=== PATIENT | male | born 1990 | race Caucasian/White ===

== ENCOUNTER 2019-07-22 11:33 | Emergency (ER) | payer OTHER ==
[~2019-07-22] VITALS: Ht 187 cm; Wt 120.0 kg
[~2019-07-22 11:33] MED LIST: NAPR-243 PO; SULF1TAB38 PO
[2019-07-22] MEDS ORDERED: oxyCODONE/APAP 5/325MG (PERCOCET 5) TABLET PO ONE (11:45)
--- NOTE | 2019-07-22 11:47 | ED Upper Extremity ---
General Chief Complaint: Upper Extremity Stated Complaint: FALL - R SHOULDER PAIN Source: patient Exam Limitations: no limitations History of Present Illness Date Seen by Provider: Jul 22, 2019 Time Seen by Provider: 11:46 Initial Comments To ER with reports of a fall and subsequent right shoulder pain that occurred earlier this morning. Onset: just prior to arrival Severity: moderate Pain/Injury Location: right shoulder Method of Injury: direct blow, fell Allergies and Home Medications Allergies Coded Allergies: acetaminophen (Verified Allergy, Severe, HIVES, 03/26/13) hydrocodone bit (Verified Allergy, Severe, HIVES, 03/26/13) Home Medications Tramadol HCl 50 Mg Tablet, 50 MG PO Q6H PRN for PAIN-MODERATE Prescribed by: FIDEL ALEMAN on 07/22/19 1229 Patient Home Medication List Home Medication List Reviewed: Yes Review of Systems Constitutional: see HPI EENTM: see HPI Respiratory: no symptoms reported Cardiovascular: no symptoms reported Genitourinary: no symptoms reported Musculoskeletal: see HPI Skin: no symptoms reported Psychiatric/Neurological: No Symptoms Reported Past Nkagjve-Znsrtf-Qocusv Hx Patient Social History Alcohol Use: Occasionally Uses Recreational Drug Use: Yes (pot) Smoking Status: Current Everyday Smoker Type Used: Cigarettes Recent Foreign Travel: No Contact w/Someone Who Travel: No Recent Hopitalizations: No Immunizations Up To Date Tetanus Booster (TDap): Less than 5yrs Seasonal Allergies Seasonal Allergies: No Past Medical History Surgeries: No Respiratory: No Cardiac: No Neurological: No Sexually Transmitted Disease: No HIV/AIDS: No Genitourinary: No Gastrointestinal: No Musculoskeletal: No Endocrine: No HEENT: No Cancer: No Psychosocial: No Integumentary: No Blood Disorders: No Adverse Reaction/Blood Tranf: No Physical Exam Vital Signs Vital Signs - First Documented 07/22/19 11:40 Temp 35.9 Pulse 100 Resp 18 B/P (MAP) 120/76 (91) Pulse Ox 95 Capillary Refill : Height, Weight, BMI Height: '" Weight: lbs. oz. kg; BMI Method:Stated General Appearance: WD/WN, no apparent distress HEENT: PERRL/EOMI, normal ENT inspection Neck: non-tender, full range of motion Respiratory: no respiratory distress, no accessory muscle use Shoulder: normal inspection, limited ROM, pain Elbow/Forearm: normal inspection, non-tender Wrist: Yes normal inspection, Yes non-tender Hand: normal inspection, non-tender Neurologic/Tendon: normal sensation, normal motor functions Neurologic/Psychiatric: alert, normal mood/affect, oriented x 3 Skin: normal color, warm/dry Progress/Results/Core Measures Results/Orders My Orders Orders - FIDEL ALEMAN APRN Shoulder, Right, 3 Views (07/22/19 11:44) Chest 1 View, Ap/Pa Only (07/22/19 11:44) Oxycodone/Apap 5/325mg Tablet (Percocet (07/22/19 11:45) Tramadol Tablet (Ultram Tablet) (07/22/19 12:00) Tramadol Tablet (Ultram Tablet) (07/22/19 11:58) Medications Given in ED Current Medications Medications Dose Ordered Sig/Rosanna Route Start Time Stop Time Status Last Admin Dose Admin Tramadol HCl 50 mg ONCE ONCE PO 07/22/19 12:00 07/22/19 12:01 DC 07/22/19 12:00 50 MG Vital Signs/I&O 07/22/19 11:40 Temp 35.9 Pulse 100 Resp 18 B/P (MAP) 120/76 (91) Pulse Ox 95 Diagnostic Imaging Diagonstic Imaging: Xray Comments NAME: KEYONNA TORRES [facility] REC#: [id number] PT STATUS: REG ER : 1990 PHYSICIAN: FIDEL ALEMAN APRN ADMIT DATE: 07/22/19/ER Signed Date of Exam:07/22/19 SHOULDER, RIGHT, 3 VIEWS CLINICAL HISTORY: Fall. Right collarbone injury. COMPARISON: None TECHNIQUE: 4 views of the right shoulder. FINDINGS: There is no acute fracture of the right shoulder. There is separation of the right acromioclavicular joint with approximately 7 mm of superior displacement of the lateral right clavicle from the acromion. No joint effusion is seen in the right shoulder. The surrounding soft tissues are unremarkable. IMPRESSION: 1. Right-sided type V acromioclavicular joint injury. No acute fracture. Recommend orthopedic consultation. Dictated by: Dictated on workstation # [id number] Dict: 07/22/19 1214 Trans: 07/22/19 1219 [facility] [id number] Interpreted by: AARON ANDERSON DO Electronically signed by: AARON ANDERSON DO 07/22/19 1219 Departure Communication (Admissions) Spoke with Dr. Hernandez from orthopedics, feels this is a type II or 3 before meals separation. The patient has no paresthesias in the arm no numbness no tingling and has a strong radial pulse and brisk capillary refill. I'll place him in a splint and have him follow-up with Dr. Hernandez. Impression Primary Impression: right acromioclavicular joint separation Disposition: HOME, SELF-CARE Condition: Stable Departure-Patient Inst. Decision time for Depature: 12:10 Referrals: ENZO ESCALERA BRIAN J MD NO,LOCAL PHYSICIAN (PCP) Primary Care Physician SRINIVASAN HILL MD,JESUS LUNSFORD,CHAYA WOMACK,CARI Curran MD Patient Instructions: Shoulder Pain (DC), Shoulder Add. Discharge Instructions: 1. Return to ER for any concerns 2. Follow-up with an orthopedist of your choosing, a list of local orthopedic surgeons has been listed for you. Call Wednesday to make an appointment to be seen for further evaluation. Wear a sling at all times except when showering in the meantime. No use of the right arm. Pain medication as directed. Scripts Tramadol HCl (Ultram) 50 Mg Tablet 50 MG PO Q6H PRN for PAIN-MODERATE, #20 TAB Prov: FIDEL ALEMAN APRN 07/22/19 FIDEL ALEMAN APRN Jul 22, 2019 11:47
--- NOTE | 2019-07-22 12:15 | Diagnostic Imaging Report ---
Patient History: Fall. Pain in the right collarbone.. Technique: Single frontal view of the chest Comparison: None FINDINGS: The lung volumes are normal. No focal consolidation is seen. No large pleural effusion or pneumothorax is seen. The cardiomediastinal silhouette is normal in size and contour. No acute osseous abnormality is seen. IMPRESSION: 1. No acute pleuroparenchymal process. Dictated by: Dictated on workstation # [id number]
--- NOTE | 2019-07-22 12:26 | Diagnostic Imaging Report ---
CLINICAL HISTORY: Fall. Right collarbone injury. COMPARISON: None TECHNIQUE: 4 views of the right shoulder. FINDINGS: There is no acute fracture of the right shoulder. There is separation of the right acromioclavicular joint with approximately 7 mm of superior displacement of the lateral right clavicle from the acromion. No joint effusion is seen in the right shoulder. The surrounding soft tissues are unremarkable. IMPRESSION: 1. Right-sided type V acromioclavicular joint injury. No acute fracture. Recommend orthopedic consultation. Dictated by: Dictated on workstation # [id number]
[2019-07-22] MEDS ORDERED: TRAM-42 PO (12:29)
[2019-07-22 12:52] VITALS: BP 120/76
--- OUTSIDE RECORDS SUMMARY | 2019-08-14 15:27 | XMS REPORT | Continuity of Care Document ---
Author Organization Unknown POS Address Unknown SP Phone Unavailable SP Allergies Active Description Code Type Severity POS Reaction Onset Reported/Identified POS to Patient Clinical Status POS Yes acetaminophen [id number] Lew g Allergy SP Severe HIVES 03/26/2013 SP SP Yes hydrocodone bit [id number] D rug Allergy SP Severe HIVES 03/26/2013 SP SP Medications There is no data. Problems Date Dx Coded Attending Type Code POS Diagnosed By POS 07/22/2019 FIDEL ALEMAN APRN Ot F17.210 SP NICOTINE DEPENDENCE, CIGARETTES, UNCOMPL SP 07/22/2019 FIDEL ALEMAN APRN Ot M25.511 SP PAIN IN RIGHT SHOULDER SP 07/22/2019 FIDEL ALEMAN APRN Ot S43.101A SP UNSP DISLOCATION OF RIGHT ACROMIOCLAVICU SP 07/22/2019 FIDEL ALEMAN APRN Ot W01.198A SP FALL SAME LEV FROM SLIP/TRIP W STRIKE AG SP 07/22/2019 FIDEL ALEMAN APRN Ot Z88 .5 SP STATUS TO NARCOTIC AGENT STATUS SP 07/25/2019 FIDEL ALEMAN APRN Ot F17.210 SP NICOTINE DEPENDENCE, CIGARETTES, UNCOMPL SP 07/25/2019 FIDEL ALEMAN APRN Ot M25.511 SP PAIN IN RIGHT SHOULDER SP 07/25/2019 FIDEL ALEMAN APRN Ot S43.101A SP UNSP DISLOCATION OF RIGHT ACROMIOCLAVICU SP 07/25/2019 FIDEL ALEMAN APRN Ot W01.198A SP FALL SAME LEV FROM SLIP/TRIP W STRIKE AG SP 07/25/2019 FIDEL ALEMAN APRN Ot Z88 .5 SP STATUS TO NARCOTIC AGENT STATUS SP Procedures There is no data. Results There is no data. Encounters ACCT No. Visit Date/Time Discharge Status POS Pt. Type Provider Facility Loc./Un it POS Complaint POS [id number] 07/22/2019 11:35:00 019 12:54:00 SP DIS Emergency FIDEL ALEMAN APRN [facility] [place] [facility] FALL - R SHOULDER PAIN SP [id number] 03/26/2013 16:11:00 013 17:55:00 SP DIS Emergency SP
--- OUTSIDE RECORDS SUMMARY | 2019-08-14 15:27 | XMS REPORT | Continuity of Care Document ---
Author Author [facility] POS Organization [facility] SP Address Unknown SP Phone Unavailable SP Care Team Providers Care Freezer Operator Name Role Phone POS NO, LOCAL PHYSICIAN PP Unavailable SP Insurance Providers Payer Name Policy Number Subscriber Name POS Relationship POS Self Pay Wolf Champion SP Advance Directives Directive Response Recor ded Date POS Advance Directives N 4:14pm POS Organ Donor N 03/26/13 4 :14pm SP Problems No Known Problems or Medical conditions. Social History History Response Recorde d Date/Time POS Alcohol Use Occasionally Uses 03/26/13 POS Recreational Drug Use Y cannibus 03/26/13 SP Recent Foreign Travel N 03/26/13 4:14pm SP Recent Infectious Disease Exposure N SP 4:14pm Sexually Transmitted Disease N 03/26/13 SP HIV/AIDS N 03/26/13 4:14 pm SP Allergies, Adverse Reactions, Alerts Allergen Type Severity POS Last Updated POS hydrocodone bit Allergy Severe SP HIVES 03/26/13 SP acetaminophen Allergy Se lia SP HIVES 03/26/13 SP Medications Medication Dose Units POS Sig Qty Days POS Naproxen (Naprosyn) 1 Ea ch POS PO TID PRN 20 SP Trimethoprim/Sulfamethoxazole (Bactrim Ds) 1 SP Ea PO BID 20 SP SP Response Recorded Date/Time POS Status not known Unknown SP Results No Known Relevant Diagnostic Tests, Laboratory Data and/or Discharge Summary. Encounters Encounter Location Date/ Time POS Departed Emergency Room [facility] SP 4:11pm
== END 2019-07-22 12:54 | disposition home or self-care (01) ==
LOC: EDUNIT# 11:33 → ER 11:35
DX: S43.101A Unspecified dislocation of right acromioclavicular joint, initial encounter (principal); F17.210 Nicotine dependence, cigarettes, uncomplicated; Z88.5 Allergy status to narcotic agent; W01.198A Fall on same level from slipping, tripping and stumbling with subsequent striking against other object, initial encounter
CPT/HCPCS: 71045; 73030

== ENCOUNTER 2019-12-07 18:10 | Emergency (ER) | payer OTHER ==
[~2019-12-07] VITALS: Ht 188 cm; Wt 129.0 kg
[~2019-12-07 18:10] MED LIST changes: +TRAM-42 PO
--- NOTE | 2019-12-07 18:49 | ED Lower Extremity ---
General Chief Complaint: Lower Extremity Stated Complaint: RIGHT KNEE PAIN Nursing Triage Note: PT STATES RT KNEE PAIN AFTER MOVING A HOT TUB, APROX 80 LBS, GOT UP AND FELT PAIN. Nursing Sepsis Screen: No Definite Risk Source: patient Exam Limitations: no limitations History of Present Illness Date Seen by Provider: Dec 07, 2019 Time Seen by Provider: 18:46 Initial Comments To ER with right knee pain. This began about 20 minutes prior to arrival with reports that he was lifting up a tub when he twisted while standing up, had sudden onset of pain in the right knee, he now feels as though the knee is very tight and has had a popping sensation in the knee. Onset: just prior to arrival Severity: moderate Pain/Injury Location: right knee Method of Injury: twisted Modifying Factors: Worse With Movement Allergies and Home Medications Allergies Coded Allergies: acetaminophen (Verified Allergy, Severe, HIVES, 03/26/13) hydrocodone bit (Verified Allergy, Severe, HIVES, 03/26/13) Home Medications Tramadol HCl 50 Mg Tablet, 50 MG PO Q6H PRN for PAIN-MODERATE Prescribed by: FIDEL ALEMAN on 07/22/19 1229 Patient Home Medication List Home Medication List Reviewed: Yes Review of Systems Constitutional: see HPI EENTM: see HPI Respiratory: no symptoms reported Cardiovascular: no symptoms reported Genitourinary: no symptoms reported Musculoskeletal: see HPI Skin: no symptoms reported Psychiatric/Neurological: No Symptoms Reported Past Fjfqlps-Zcxrxj-Wvpzmt Hx Patient Social History Alcohol Use: Occasionally Uses Alcohol Beverage of Choice: Beer, [place] Recreational Drug Use: Yes (THC) Smoking Status: Former Smoker Type Used: Cigarettes Former Smoker, Quit: Oct 04, 2019 Recent Foreign Travel: No Contact w/Someone Who Travel: No Recent Infectious Disease Expo: No Recent Hopitalizations: No Physical Abuse: No Sexual Abuse: No Mistreated: No Fear: No Immunizations Up To Date Tetanus Booster (TDap): Less than 5yrs Seasonal Allergies Seasonal Allergies: No Past Medical History Surgeries: No Respiratory: No Cardiac: No Neurological: No Sexually Transmitted Disease: No HIV/AIDS: No Genitourinary: No Gastrointestinal: No Musculoskeletal: Yes (SLIPPED DISK) Endocrine: No HEENT: No Cancer: No Psychosocial: No Integumentary: No Blood Disorders: No Adverse Reaction/Blood Tranf: No Physical Exam Vital Signs Vital Signs - First Documented 12/07/19 18:19 Temp 36.7 Pulse 90 Resp 20 B/P (MAP) 158/111 (127) Pulse Ox 98 O2 Delivery Room Air Capillary Refill : Less Than 3 Seconds Height, Weight, BMI Height: '" Weight: lbs. oz. kg; 36.00 BMI Method:Stated General Appearance: WD/WN, no apparent distress HEENT: PERRL/EOMI, normal ENT inspection Respiratory: no respiratory distress, no accessory muscle use Hips: bilateral hip non-tender, bilateral hip normal inspection, bilateral hip normal range of motion Legs: bilateral leg non-tender, bilateral leg normal inspection, bilateral leg normal range of motion Knees: right knee pain, right knee other (no effusion no erythema no deformity no instability. He is tender to palpation medial joint line) Ankles: bilateral ankle non-tender, bilateral ankle normal inspection, bilateral ankle normal range of motion Feet: bilateral foot non-tender, bilateral foot normal inspection, bilateral foot normal range of motion Neurologic/Psychiatric: alert, normal mood/affect, oriented x 3 Skin: normal color, warm/dry Progress/Results/Core Measures Results/Orders My Orders Orders - FIDEL ALEMAN APRN Knee, Right, 3 Views (12/07/19 18:33) Vital Signs/I&O 12/07/19 18:19 Temp 36.7 Pulse 90 Resp 20 B/P (MAP) 158/111 (127) Pulse Ox 98 O2 Delivery Room Air Blood Pressure Mean: 127 Departure Impression Primary Impression: Injury of meniscus of knee Qualified Codes: S83.8X1A - Sprain of other specified parts of right knee, initial encounter Disposition: 01 HOME, SELF-CARE Condition: Stable Departure-Patient Inst. Decision time for Depature: 19:30 Referrals: NO,LOCAL PHYSICIAN (PCP/Family) Primary Care Physician Patient Instructions: Internal Derangement of the Knee (DC), Meniscal Tear (DC) Add. Discharge Instructions: 1. Wear the knee brace as needed 2. Pain persists into next week follow-up with your regular doctor to discuss obtaining an MRI. Tylenol and ibuprofen in the meantime. All discharge instructions reviewed with patient and/or family. Voiced understanding. FIDEL ALEMAN APRN Dec 07, 2019 18:48
--- NOTE | 2019-12-07 19:11 | Diagnostic Imaging Report ---
Indication: Knee pain after injury AP, oblique and lateral views of the right knee are obtained. FINDINGS: No acute fracture or dislocation is identified. No abnormal lytic or sclerotic focus is seen, and there is no radiopaque foreign body. IMPRESSION: No acute abnormality. Dictated by: Dictated on workstation # [id number]
[2019-12-07 19:37] VITALS: BP 155/98
--- OUTSIDE RECORDS SUMMARY | 2019-12-11 23:09 | XMS REPORT | Continuity of Care Document ---
Author Organization Unknown Address Unknown Phone Unavailable Allergies Active Description Code Type Severity Reaction Onset Reported/Identified Relationship to Patient Clinical Status Yes acetaminophen [id number] Lew g Allergy Severe HIVES 03/26/2013 Yes hydrocodone bit [id number] D rug Allergy Severe HIVES 03/26/2013 Medications There is no data. Problems Date Dx Coded Attending Type Code Diagnosis Diagnosed By 07/22/2019 FIDEL ALEMAN APRN Ot F17.210 NICOTINE DEPENDENCE, CIGARETTES, UNCOMPL 07/22/2019 FIDEL ALEMAN APRN Ot M25.511 PAIN IN RIGHT SHOULDER 07/22/2019 FIDEL ALEMAN APRN Ot S43.101A UNSP DISLOCATION OF RIGHT ACROMIOCLAVICU 07/22/2019 FIDEL ALEMAN APRN Ot W01.198A FALL SAME LEV FROM SLIP/TRIP W STRIKE AG 07/22/2019 FIDEL ALEMAN APRN Ot Z88 .5 ALLERGY STATUS TO NARCOTIC AGENT STATUS 07/25/2019 FIDEL ALEMAN APRN Ot F17.210 NICOTINE DEPENDENCE, CIGARETTES, UNCOMPL 07/25/2019 FIDEL ALEMAN APRN Ot M25.511 PAIN IN RIGHT SHOULDER 07/25/2019 FIDEL ALEMAN APRN Ot S43.101A UNSP DISLOCATION OF RIGHT ACROMIOCLAVICU 07/25/2019 FIDEL ALEMAN APRN Ot W01.198A FALL SAME LEV FROM SLIP/TRIP W STRIKE AG 07/25/2019 FIDEL ALEMAN APRN Ot Z88 .5 ALLERGY STATUS TO NARCOTIC AGENT STATUS Procedures There is no data. Results There is no data. Encounters ACCT No. Visit Date/Time Discharge Status Pt. Type Provider Facility Loc./Unit Complaint [id number] 12/07/2019 18:11:00 020 19:37:00 DIS Emergency FIDEL ALEMAN APRN [facility] ER RIGHT KNEE PAIN [id number] 07/22/2019 11:35:00 019 12:54:00 DIS Emergency FIDEL ALEMAN APRN [facility] ER FALL - R SHOULDER PAIN [id number] 03/26/2013 16:11:00 013 17:55:00 DIS Emergency
== END 2019-12-07 19:37 | disposition home or self-care (01) ==
LOC: EDUNIT# 18:10 → ER 18:11
DX: S89.81XA Other specified injuries of right lower leg, initial encounter (principal); Z88.6 Allergy status to analgesic agent; Z88.5 Allergy status to narcotic agent; Z87.891 Personal history of nicotine dependence; X50.1XXA Overexertion from prolonged static or awkward postures, initial encounter
CPT/HCPCS: 73562